=== PATIENT | male | born 1990 | race Caucasian/White ===

== ENCOUNTER 2017-01-14 20:32 | Emergency (ER) | payer OTHER ==
[~2017-01-14] VITALS: Ht 185.4 cm; Wt 145.3 kg
[~2017-01-14 20:32] MED LIST: NAPR1TAB9 PO
[2017-01-14 20:37] VITALS: BP 148/92; PULSE 100; TEMP 37.2; O2SAT 96; Ht 185.4 cm; Wt 145.3 kg
[2017-01-14] MEDS ORDERED: SULF800T23 PO (20:58)
[2017-01-14] MEDS ORDERED: CEPH500C PO (20:58)
[2017-01-14] MEDS ORDERED: SEPTRA DS HOME PACK 1 EA VIAL PO ONE (21:00)
[2017-01-14] MEDS ORDERED: CEPHALEXIN 500MG HOME PACK 1 EA BTL PO ONE (21:00)
--- NOTE | 2017-01-14 23:28 | EMERGENCY ROOM VISIT NOTE ---
History First contact with patient: 20:44 Chief Complaint: SWELLING TO EXTREMITY Stated Complaint: RED/SWOLLEN L LEG History of Present Illness The patient is a 26 year old male who presents to the Emergency Room with complaints of pain and swelling to his left leg that has been worsening over the past few days. The patient states initially he had a small pimple in this area, however it has increased in size significantly. He states that his mother examined it earlier today, and was able to get a large amount of pus from the wound. The patient is not diabetic and does not recall injury or trauma. He has not had fever or chills. He is able to ambulate. He has not taken anything [id number] and rates his discomfort a 5/10. Review of Systems More than 10 systems were reviewed and otherwise negative with the exception of history of present illness. Past Medical/Surgical History No chronic medical disease Family History No pertinent family history Social History Smoking Status: Never Smoker Housing Status: lives with family Current/Historical Medications Scheduled Cephalexin Monohydrate (Keflex), 500 MG PO TID Sulfa/Trimethoprim (Bactrim Ds 800MG/160MG), 1 TAB PO BID Physical Exam Vital Signs Date Time Temp Pulse Resp B/P (MAP) Pulse Ox O2 Delivery O2 Flow Rate FiO2 01/14/17 20:37 37.2 100 18 148/92 96 Room Air Physical Exam VITALS: Vitals are noted on the nurse's note and reviewed by myself. Vital signs stable. GENERAL: Well-developed, well-nourished, white male, who is in no acute distress and resting comfortably. Patient is cooperative with the examination. HEART: Regular rate and rhythm without murmurs gallops or rubs. LUNGS: Clear to auscultation bilaterally without wheezes, rales or rhonchi. No retractions or accessory muscle use. NEURO: Patient was alert and oriented to person place and time. CN II through XII grossly intact. SKIN: The skin was with an area of cellulitis appreciated on the anterior lateral aspect of the left lower extremity. This measures approximately 6 x 4 cm in dimension and is without obvious fluctuance. There is no purulence or drainage for culture. Neurovascular status is intact the distal extremity. No palpable cord or posterior calf tenderness noted. Medical Decision & Procedures Medications Administered Medications (Trade) Dose Ordered Sig/Tito Route Start Time Stop Time Status Last Admin Dose Admin Cephalexin Monohydrate (Keflex 500MG Home Pack) 1 homepack NOW ONCE PO 01/14/17 21:00 01/14/17 21:01 DC 01/14/17 21:00 1 HOMEPACK Trimethoprim/ Sulfamethoxazole (Sulfameth/ Trimeth Ds 800/ 160MG Home Pack) 1 homepack UD ONCE PO 01/14/17 21:00 01/14/17 21:01 DC 01/14/17 21:00 1 HOMEPACK ED Course Physical exam and history were performed. Nursing notes, EMR, and Medication List were personally reviewed. Patient appears to have a left lower extremity cellulitis on examination. He does not have drainage or purulence for culture. The patient will be started on a course of Bactrim and Keflex. I recommend that he have close follow-up in the next 48-72 hours for recheck, either with his primary care physician, or back in the emergency department. Overall the patient was educated on conservative measures and otherwise invited back to the ER with any new, worsening, or concerning symptoms. The chart was completed utilizing [employer] Speech Voice Recognition Software. Grammatical errors, random word insertions, pronoun errors, and incomplete sentences are an occasional consequence of this system due to software limitations, ambient noise, and hardware issues. Any formal questions or concerns about the content, text, or information contained within the body of this dictation should be directly addressed to the provider for clarification. . Medical Decision Differential diagnosis: Etiologies such as cellulitis, abscess, MRSA infection, DVT, necrotizing fasciitis, dermatitis, drug eruption, as well as others were entertained.. Impression Primary Impression: Cellulitis of left lower leg Departure Information Dispostion Home / Self-Care Condition GOOD Prescriptions Cephalexin Monohydrate (Keflex) 500 Mg Cap 500 MG PO TID for 9 Days, #27 CAP Prov: Emery Munoz PA-C 01/14/17 Sulfa/Trimethoprim (Bactrim Ds 800MG/160MG) Tab 1 TAB PO BID for 9 Days, #18 TAB Prov: Emery Munoz PA-C 01/14/17 Forms HOME CARE DOCUMENTATION FORM, IMPORTANT VISIT INFORMATION Patient Instructions My [facility] Additional Instructions You were seen and evaluated today on an emergency basis only. This is not a substitute for, or an effort to provide, complete comprehensive medical care. It is not possible to recognize and treat all injuries or illnesses in a single emergency department visit. For this reason it is recommended that you followup with your primary care physician or back in the emergency department in 48-72 hours for recheck of your condition. Cephalexin(Keflex) 500mg: Take one pill 3 times daily for 10 days for your skin infection. All antibiotics can cause diarrhea. If this occurs and you feel worse or it does not resolve in 1-2 days follow up with your doctor or return to the Emergency Department as this could be signs of serious underlying problems. Any medication can cause an allergic reaction, stop the pills immediately and return to the ER for rash, hives, breathing difficulties, or swelling. Trimethoprim-Sulfamethoxazole(Bactrim DS): Take one pill twice daily for 10 days for your skin infection. All antibiotics can cause diarrhea. If this occurs and you feel worse or it does not resolve in 1-2 days follow up with your doctor or return to the Emergency Department as this could be signs of serious underlying problems. Any medication can cause an allergic reaction, stop the pills immediately and return to the ER for rash, hives, breathing difficulties, or swelling. You are welcome to return to the emergency department anytime with new, worsening, or concerning symptoms.
== END 2017-01-14 21:20 | disposition home or self-care (01) ==
LOC: C.EDB 20:33 → C.EDD 21:20
DX: L03.116 Cellulitis of left lower limb (principal)